=== PATIENT | male | born 1955 | race Caucasian/White ===

== ENCOUNTER 2017-09-08 10:37 | Emergency (ER) | payer MEDICAID ==
[~2017-09-08] VITALS: Ht 167.6 cm; Wt 85.0 kg
[2017-09-08 10:40] VITALS: Ht 167.6 cm; Wt 85.0 kg
[2017-09-08] MEDS ORDERED: KETOROLAC 30 MG INJ IM STA (11:20)
[2017-09-08] MEDS ORDERED: HYDROCODONE/APAP (5/325) TAB PO ONE (11:30)
[2017-09-08] MEDS ORDERED: IBUP800T25 PO (11:33)
[2017-09-08] MEDS ORDERED: CYCL-319 PO (11:33)
[2017-09-08] MEDS ORDERED: TRAM50TA2 PO (11:33)
--- NOTE | 2017-09-08 11:37 | ERD ---
ER Documentation Chief Complaint Chief Complaint RT KNEE PAIN X 2 WEEKS HPI 62-year-old male presents with right-sided knee pain he has had for 2 weeks. Currently he states the pain is mild but the pain gets worse if he stands a lot or if he walks a lot or if he works a lot or if he drives a lot. Pain at times radiates down his right lower extremity from the knee down. He denies any trauma. At times he feels numbness and tingling. He denies being diabetic as he recent blood work which was all normal. He has been taking Tylenol occasionally but not regularly. No fever. Patient is ambulatory. ROS All systems reviewed and are negative except as per history of present illness. Medications Home Meds Active Scripts Tramadol HCl (Tramadol HCl) 50 Mg Tablet, 50 MG PO Q4 Y for PAIN, #20 TAB Prov:PEDRO PABLO CASANOVA PA-C 09/08/17 Ibuprofen* (Motrin*) 800 Mg Tab, 800 MG PO Q6, #30 TAB Prov:PEDRO PABLO CASANOVA PA-C 09/08/17 Cyclobenzaprine Hcl* (Cyclobenzaprine Hcl*) 10 Mg Tablet, 10 MG PO QHS, #20 TAB Prov:PEDRO PABLO CASANOVA PA-C 09/08/17 Allergies Allergies: Coded Allergies: No Known Allergy (Unverified , 09/08/17) PMhx/Soc Medical and Surgical Hx: pt denies Medical Hx, pt denies Surgical Hx History of Surgery: No Anesthesia Reaction: No Hx Neurological Disorder: No Hx Respiratory Disorders: No Hx Cardiac Disorders: No Hx Psychiatric Problems: No Hx Miscellaneous Medical Probl: No Hx Alcohol Use: No Hx Substance Use: No Hx Tobacco Use: No Smoking Status: Never smoker FmHx Family History: No diabetes Physical Exam Vitals Vital Signs Date Time Temp Pulse Resp B/P Pulse Ox O2 Delivery O2 Flow Rate FiO2 09/08/17 10:40 98.1 72 18 155/80 98 Physical Exam INITIAL VITAL SIGNS: Reviewed by me GENERAL: Awake, alert and oriented x 4, well appearing, nontoxic, speaking in full sentences. No acute distress RESPIRATORY: Clear to auscultation bilaterally. Symmetric chest wall rise. No wheezing or rales. No accessory muscle use. CV: Regular rate and rhythm. No murmurs, rubs, or gallops. EXTREMITIES: Right knee has no erythema, no edema, full range of motion, no bony abnormalities, sensation to light touch intact, nontender throughout, no warmth, no pain tenderness redness or swelling behind the calf Results 24 hrs Laboratory Tests Test 09/08/17 11:29 Bedside Glucose 109mg/dL Current Medications Medications (Trade) Dose Ordered Sig/Jeffrey Route PRN Reason Start Time Stop Time Status Last Admin Dose Admin Ketorolac Tromethamine (Toradol) 30 mg ONCE STAT IM 09/08/17 11:20 09/08/17 11:21 DC 09/08/17 11:33 Acetaminophen/ Hydrocodone Bitart ([place] (5/325)) 1 tab ONCE ONCE PO 09/08/17 11:30 09/08/17 11:31 DC Procedures/MDM Patient is a 62-year-old male who presents of right knee pain is been going on for 2 weeks. Is no trauma. He is ambulatory neurovascular intact. Accu-Chek was 109. His exam is normal there is no evidence of DVT, cellulitis, deep space infection, septic joint, or any other emergent cause of his symptoms. I offered x-rays but he declined. He was given Toradol here and discharged with ibuprofen, Flexeril and tramadol. He states he will return in a few days if he has worsening or if symptoms do not improve for possible imaging at that time. Patient counseled regarding my diagnostic impression and care plan. Prior to discharge all questions answered. Pt agrees with treatment plan and understands strict return precautions. Pt is instructed to follow up with primary care provider within 24-48 hours. Precautionary instructions provided including instructions to return to the ER if not improving or for any worsening or changing symptoms or concerns. Departure Diagnosis: Primary Impression: Knee pain Condition: Stable Patient Instructions: Knee Pain, Uncertain Cause Additional Instructions: Llame al doctor YESENIA y yulia essence ALEXIS PARA DENTRO DE 1-2 HUERTA.Dgale a la secretaria que nosotros le instruimos hacer esta alexis.Avise o llame si ling condicin se empeora antes de la alexis. Regresa aqui si peor o no mejor. PEDRO PABLO CASANOVA PA-C Sep 08, 2017 11:37
== END 2017-09-08 12:03 | disposition home or self-care (01) ==
LOC: FTE 10:37
DX: M25.561 Pain in right knee (principal)
CPT/HCPCS: 82962; 96372; J1885; Z7502